=== PATIENT | male | born 1980 | race Caucasian/White ===

== ENCOUNTER 2022-01-16 11:46 | Emergency (ER) | payer SELFPAY ==
[~2022-01-16] VITALS: Ht 170.2 cm; Wt 85.3 kg
[2022-01-16 11:59] VITALS: BP 144/90
[2022-01-16] MEDS ORDERED: BACI1PAC6 TP (13:12)
[2022-01-16] MEDS ORDERED: KEFSUS PO (13:12)
--- NOTE | 2022-01-16 13:30 | NUR ---
PT'S RIGHT HAND IRRIGATED WITH WARM WATER AND CLEANED WITH 4X4 GAUZE PADS. PT'S HAND WRAPPED WITH 3" INES WRAP, [facility] WN BEFORE AND AFTER. RN NOTIFIED.
[2022-01-16 13:39] VITALS: BP 144/90
--- NOTE | 2022-01-16 13:41 | NUR ---
Patient discharged with v/s stable. Written and verbal after care instructions given and explained. Patient alert, oriented and verbalized understanding of instructions. Ambulatory with steady gait. All questions addressed prior to discharge. ID band removed. Patient advised to follow up with PMD. Rx of bacitracin ointment, cephalexin given. Patient educated on indication of medication including possible reaction and side effects. Opportunity to ask questions provided and answered.
== END 2022-01-16 13:41 | disposition home or self-care (01) ==
LOC: MED 11:46
DX: S60.221A Contusion of right hand, initial encounter (principal); X58.XXXA Exposure to other specified factors, initial encounter; Y93.89 Activity, other specified; Y92.89 Other specified places as the place of occurrence of the external cause; Y99.8 Other external cause status
CPT/HCPCS: 73130; 90471; 90715; 99283